=== PATIENT | male | born 2005 | race Caucasian/White ===

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

== ENCOUNTER 2025-01-23 12:53 | Emergency (ER) | payer BC ==
[~2025-01-23] VITALS: Ht 177.8 cm; Wt 77.3 kg
[~2025-01-23 12:53] MED LIST: IBUP-1985 PO
[2025-01-23 13:25] VITALS: BP 135/77; PULSE 65; RESP 15; TEMP 98; O2SAT 97
== END 2025-01-23 14:34 | disposition home or self-care (01) ==
LOC: ER 12:53
DX: F41.9 Anxiety disorder, unspecified (principal); Z91.040 Latex allergy status
CPT/HCPCS: 99281